=== PATIENT | female | born 1950 | race Caucasian/White ===

== ENCOUNTER → 2023-08-27 12:21 | Outpatient (REF) | payer MEDICARE, BC, SELFPAY ==
[2023-08-27 14:09] LABS: Blood Urea Nitrogen 9 mg/dl (7-17); Carbon Dioxide 30 mmol/L (22-30); Chloride 100 mmol/L (98-107); Glucose 87 mg/dl (70-99); Potassium 3.9 mmol/L (3.5-5.1); Sodium 137 mmol/L (135-145); eGFR > 60.00
== END ==
LOC: REG 12:21
PROVIDERS: ATTENDING PHYSICIAN Surgery Vascular Surgery; FAMILY PHYSICIAN Family Medicine
DX: K55.9 Vascular disorder of intestine, unspecified (principal)
CPT/HCPCS: 36415; 80048

== ENCOUNTER → 2023-09-01 12:53 | Outpatient (REF) | payer MEDICARE, BC, SELFPAY | LOC: HWRAD 12:53 | PROVIDERS: ATTENDING PHYSICIAN Surgery Vascular Surgery; FAMILY PHYSICIAN Family Medicine | DX: K55.9 Vascular disorder of intestine, unspecified (principal) | CPT/HCPCS: 74174; Q9967 ==

== ENCOUNTER → 2023-09-08 14:05 | Outpatient (REF) | payer MEDICARE, BC, SELFPAY ==
[2023-09-08 17:11] LABS: CEA 1.35 ng/ml
[2023-09-11 16:13] LABS: CA 19-9 14 U/mL (<=35)
== END ==
LOC: REG 14:05
PROVIDERS: ATTENDING PHYSICIAN Surgery; FAMILY PHYSICIAN Family Medicine; OTHER PHYSICIAN Surgery Vascular Surgery; REFERRING PHYSICIAN Surgery
DX: K86.9 Disease of pancreas, unspecified (principal)
CPT/HCPCS: 36415; 82378; 86301

== ENCOUNTER → 2023-10-05 12:13 | Outpatient (REF) | payer MEDICARE, BC, SELFPAY | LOC: PAVMRI 12:13 | PROVIDERS: ATTENDING PHYSICIAN Surgery; FAMILY PHYSICIAN Family Medicine | DX: K86.9 Disease of pancreas, unspecified (principal) | CPT/HCPCS: 74183; A9575 ==

== ENCOUNTER → 2024-04-14 06:41 | Day surgery (SDC) | payer MEDICARE, BC, SELFPAY | LOC: GI 06:41 | PROVIDERS: ATTENDING PHYSICIAN Internal Medicine | DX: R93.3 Abnormal findings on diagnostic imaging of other parts of digestive tract (principal); K57.30 Diverticulosis of large intestine without perforation or abscess without bleeding; R11.2 Nausea with vomiting, unspecified; K29.80 Duodenitis without bleeding; K29.50 Unspecified chronic gastritis without bleeding; R10.13 Epigastric pain | CPT/HCPCS: 45331; 43239; 88305; 88342 ==

== ENCOUNTER → 2024-06-13 14:41 | Outpatient (REF) | payer MEDICARE, BC, SELFPAY | LOC: HWRAD 14:41 | PROVIDERS: ATTENDING PHYSICIAN Family Medicine | DX: Z12.31 Encounter for screening mammogram for malignant neoplasm of breast (principal); Z13.820 Encounter for screening for osteoporosis; Z78.0 Asymptomatic menopausal state | CPT/HCPCS: 77063; 77067; 77080 ==

== ENCOUNTER → 2024-08-15 07:42 | Outpatient (REF) | payer MEDICARE, BC, SELFPAY | LOC: RAD 07:42 | PROVIDERS: ATTENDING PHYSICIAN Internal Medicine; FAMILY PHYSICIAN Family Medicine | DX: R10.13 Epigastric pain (principal) | CPT/HCPCS: 78264; A9541 ==